=== PATIENT | male | born 1995 | race African-American/Black ===

== ENCOUNTER 2020-07-14 13:58 | Emergency (ER) | payer MEDICAID ==
[~2020-07-14] VITALS: Ht 177.8 cm; Wt 107.0 kg
[2020-07-14] MEDS ORDERED: MORPHINE SULFATE 4 MG/ML CPJ (NOT FOR IM USE) IV STA (14:23)
[2020-07-14] MEDS ORDERED: ONDANSETRON HCL 4MG/2ML INJ IV STA (14:23)
[2020-07-14] MEDS ORDERED: KETOROLAC 30MG/ML VIAL IV STA (14:23)
[2020-07-14] MEDS ORDERED: SODIUM CHLORIDE 0.9% 1,000 ML IV ONE (14:30)
[2020-07-14] MEDS ORDERED: ONDANSETRON HCL 4MG/2ML INJ IV ONE ×2 (14:30→15:15)
[2020-07-14] MEDS ORDERED: PROPOFOL 200MG/20ML VIAL IV ONE (15:15)
[2020-07-14] MEDS ORDERED: ETOMIDATE 2MG/ML 10ML VIAL IV ONE (15:15)
[2020-07-14 18:10] VITALS: BP 134/85
== END 2020-07-14 18:11 | disposition home or self-care (01) ==
LOC: ER 14:02
DX: S43.014A Anterior dislocation of right humerus, initial encounter (principal); X58.XXXA Exposure to other specified factors, initial encounter; Y93.01 Activity, walking, marching and hiking; Y92.89 Other specified places as the place of occurrence of the external cause; Y99.8 Other external cause status
CPT/HCPCS: 23650; 73030; 96361; 96374; 96375; 99152; 99285; J1885; J2270; J2405; J2704; J3490; J7030; Z7610; L3670

== ENCOUNTER 2020-07-20 15:35 | Emergency (ER) | payer MEDICAID ==
[~2020-07-20] VITALS: Ht 182.9 cm; Wt 107.0 kg
[2020-07-20] MEDS ORDERED: KETOROLAC 30MG/ML VIAL IV STA (15:53)
[2020-07-20] MEDS ORDERED: SODIUM CHLORIDE 0.9% 1000ML BAG (SEPSIS BOLUS) IV ONE (16:00)
[2020-07-20 16:43] LABS: BASOPHILS % 0.3 % (0.0-2.0); EOSINOPHILS % 0.2 % (0.0-5.0); HEMATOCRIT. 47.8 % (42.0-52.0); HEMOGLOBIN. 16.4 g/dL (14.0-18.0); LYMPHOCYTES % 15.2 % (20.0-50.0); MEAN CORPUSCULAR HEMOGLOBIN 30.2 pg (28.0-32.0); MEAN CORPUSCULAR VOLUME 88.3 fL (80.0-94.0); MEAN PLATELET VOLUME 8.1 fl (7.4-10.4); MONOCYTES % 13.1 % (2.0-8.0); NEUTROPHILS % 71.2 % (40.0-76.0); PLATELET 243 x1000/uL (130-400); RED BLOOD CELL COUNT 5.41 mill/uL (4.7-6.1); RED CELL DISTRIBUTION WIDTH 12.8 % (11.6-14.6)
[2020-07-20 16:50] LABS: CHLORIDE 99 mEq/L (98-107)
[2020-07-20 16:51] LABS: PROTHROMBIN TIME 10.9 sec (9.6-11.0)
[2020-07-20 18:16] LABS: CLARITY URINE CLEAR (CLEAR); COLOR URINE DARK YELLOW (YELLOW); KETONES URINE 1+ (NEGATIVE); LEUKOCYTE ESTERASE URINE TRACE (NEGATIVE); NITRITE URINE NEGATIVE (NEGATIVE); OCCULT BLOOD URINE 1+ (NEGATIVE); PROTEIN URINE TRACE (NEGATIVE); SPECIFIC GRAVITY URINE 1.031 (1.005-1.030)
[2020-07-20] MEDS ORDERED: ACETAMINOPHEN 325MG TABLET PO ONE (18:30)
[2020-07-20] MEDS ORDERED: SULFAMETHOXAZOLE/TRIMETHOPRIM 800/160MG TABLET PO STA (20:17)
[2020-07-21] MEDS ORDERED: IBUPROFEN 600MG TABLET PO PRN
[2020-07-21] MEDS ORDERED: OXYCODONE HCL/ACETAMINOPHEN 5/325MG TABLET PO PRN
[2020-07-21 00:07] VITALS: BP 135/93
[2020-07-22] MEDS ORDERED: CEPH500C2 MT (21:44)
== END 2020-07-21 00:39 | disposition home or self-care (01) ==
LOC: ER 15:48 → CANBEDREQ 07-21 06:41
DX: N12 Tubulo-interstitial nephritis, not specified as acute or chronic (principal); R74.01 Elevation of levels of liver transaminase levels; M25.512 Pain in left shoulder; Z00.00 Encounter for general adult medical examination without abnormal findings; Z98.890 Other specified postprocedural states
CPT/HCPCS: 36415; 71045; 76700; 80053; 81003; 83605; 84145; 85025; 85610; 87040; 87086; 87804; 93005; 96374; 99285; J1885; J7030

== ENCOUNTER 2020-07-22 20:08 | Emergency (ER) | payer MEDICAID ==
[~2020-07-22] VITALS: Ht 172.7 cm; Wt 91.0 kg
[2020-07-22 20:18] VITALS: BP 139/82
[2020-07-22] MEDS ORDERED: DEXAMETHASONE 4MG TABLET PO ONE (21:15)
[2020-07-22] MEDS ORDERED: CEPH500C2 MT (21:44)
== END 2020-07-22 22:04 | disposition home or self-care (01) ==
LOC: ER 20:08
DX: L27.0 Generalized skin eruption due to drugs and medicaments taken internally (principal); T36.95XA Adverse effect of unspecified systemic antibiotic, initial encounter; Y92.018 Other place in single-family (private) house as the place of occurrence of the external cause
CPT/HCPCS: 99282; J8540

== ENCOUNTER 2022-05-08 20:17 | Emergency (ER) | payer SELFPAY ==
[~2022-05-08] VITALS: Ht 182.9 cm; Wt 108.0 kg
[~2022-05-08 20:17] MED LIST: CEPH500C2 MT; IBUP-2029 PO
[2022-05-08] MEDS ORDERED: KETOROLAC 60MG/2ML VIAL IM STA (23:03)
[2022-05-08] MEDS ORDERED: ACETAMINOPHEN WITH CODEINE 300/30MG TABLET PO STA (23:03)
[2022-05-09] MEDS ORDERED: HYDROCODONE/ACETAMINOPHEN 5/325MG TABLET PO STA (01:25)
[2022-05-09] MEDS ORDERED: NAPR-681 PO (02:53)
[2022-05-09] MEDS ORDERED: TRAM50TA3 MT (02:53)
[2022-05-09 03:08] VITALS: BP 119/78
== END 2022-05-09 03:15 | disposition home or self-care (01) ==
LOC: ER 20:17
DX: M54.31 Sciatica, right side (principal); S76.011A Strain of muscle, fascia and tendon of right hip, initial encounter; S76.811A Strain of other specified muscles, fascia and tendons at thigh level, right thigh, initial encounter; X58.XXXA Exposure to other specified factors, initial encounter; Y93.9 Activity, unspecified; Y92.9 Unspecified place or not applicable; Z87.440 Personal history of urinary (tract) infections; Z98.890 Other specified postprocedural states
CPT/HCPCS: 73502; 96372; 99283; J1885

== ENCOUNTER 2022-10-20 12:01 | Emergency (ER) | payer SELFPAY ==
[~2022-10-20] VITALS: Ht 182.9 cm; Wt 105.0 kg
[~2022-10-20 12:01] MED LIST changes: +NAPR-681 PO; +TRAM50TA3 MT
[2022-10-20] MEDS ORDERED: MORPHINE SULFATE 4 MG/ML CPJ (NOT FOR IM USE) IV STA (12:38)
[2022-10-20] MEDS ORDERED: ONDANSETRON HCL 4MG/2ML INJ IV STA (12:38)
[2022-10-20] MEDS ORDERED: ETOMIDATE 2MG/ML 10ML VIAL IV ONE (12:45)
[2022-10-20] MEDS ORDERED: SODIUM CHLORIDE 0.9% 1,000 ML IV ONE (12:45)
[2022-10-20] MEDS ORDERED: MORPHINE SULFATE 4 MG/ML CPJ (NOT FOR IM USE) IV ONE (12:45)
[2022-10-20 13:50] VITALS: BP 160/100
[2022-10-20] MEDS ORDERED: IBUP-2028 MT (14:29)
== END 2022-10-20 15:34 | disposition home or self-care (01) ==
LOC: ER 12:01
DX: S43.004A Unspecified dislocation of right shoulder joint, initial encounter (principal); Y93.89 Activity, other specified; Y92.89 Other specified places as the place of occurrence of the external cause; Y99.8 Other external cause status
CPT/HCPCS: 23650; 73030; 96361; 96374; 99152; 99285; J2270; J2405; J3490; J7030; Z7610; L3670

== ENCOUNTER 2023-01-05 21:13 | Emergency (ER) | payer SELFPAY ==
[~2023-01-05 21:13] MED LIST changes: +IBUP-2028 MT
== END 2023-01-05 22:30 | disposition left against medical advice (07) ==
LOC: ER 21:56
DX: Z53.21 Procedure and treatment not carried out due to patient leaving prior to being seen by health care provider (principal)